=== PATIENT | male | born 1990 | race Caucasian/White ===

== ENCOUNTER → 2019-03-17 13:10 | Outpatient (CLI) | payer OTHER, SELFPAY ==
--- NOTE | 2019-03-17 13:23 | MRI_ITS ---
STUDY: MRI LUMBAR SPINE WITHOUT CONTRAST REASON FOR EXAM: Male, 29 years old. Back pain, left hip pain TECHNIQUE: Standardized fat and water weighted pulse sequences were obtained in the sagittal and axial planes. COMPARISON: None FINDINGS: T12-L1: . Normal disc height, hydration and morphology. Normal bilateral facet joints. Normal central canal and bilateral lateral recesses. Normal bilateral intervertebral neural foramina. Normal lumbar lordosis. There is no substantial scoliosis. Normal conus medullaris. There are mild multilevel Schmorl's nodes. L1-2: . Normal disc height, hydration and morphology. Normal bilateral facet joints. Normal central canal and bilateral lateral recesses. Normal bilateral intervertebral neural foramina. L2-3: Normal disc height, hydration and morphology. There is mild facet and ligamentous hypertrophy. Normal central canal and bilateral lateral recesses. Normal bilateral intervertebral neural foramina. L3-4: Normal endplates. Normal disc height, hydration and morphology. There is mild facet spondylosis and ligamentous hypertrophy. Normal central canal and bilateral lateral recesses. Normal bilateral intervertebral neural foramina. L4-5: There is mild posterior bulging annulus. There is ligamentous hypertrophy. There is Mild facet spondylosis. Mild central canal narrowing. There is no foraminal stenosis. L5-S1: There is disc space narrowing. There is increased signal within the posterior disc margin. There is small posterior protrusion with minimal inferior extrusion. This is likely subligamentous in location. There is slight effacement of thecal sac without significant central canal stenosis. There is ligamentous and facet hypertrophy. There is no foraminal stenosis. Normal visualized sacral ala. Normal visualized paraspinous soft tissue structures. MRI/Spine Lumbar (Routine) IMPRESSION: Multilevel spondylosis, at L5-S1 there is an annular tear with small posterior protrusion with minimal inferior extrusion. This is likely subligamentous in location. There is slight effacement of thecal sac without significant central canal stenosis. At L4-L5 there is mild posterior bulging annulus. There is ligamentous hypertrophy. There is Mild facet spondylosis. Mild central canal narrowing. Electronically Signed: Jimmy Weinstein, at 17:11 EDT Tel , Service support ,
== END ==
PROVIDERS: Family Provider Family Medicine; PCP Family Medicine; Referring Provider Family Medicine; Visit Provider Family Medicine
DX: M54.41 Lumbago with sciatica, right side (principal); G89.29 Other chronic pain
CPT/HCPCS: 72148

== ENCOUNTER → 2020-10-21 | Outpatient (CLI) | payer OTHER, SELFPAY ==
[2020-10-21 12:25] VITALS: BMI 24.9
== END | disposition home or self-care (01) ==
LOC: LABSPEC 16:08
PROVIDERS: PCP Family Medicine; Referring Provider Physician Assistant; Visit Provider Physician Assistant
DX: Z20.828 Contact with and (suspected) exposure to other viral communicable diseases (principal)
CPT/HCPCS: 87635; U0003

== ENCOUNTER 2023-11-03 09:02 | Emergency (ER) | payer BC, SELFPAY ==
[2023-11-03 09:04] VITALS: BP 139/75; PULSE 71; RESP 18; TEMP 36.4; O2SAT 99; BMI 24.1
--- NOTE | 2023-11-03 09:16 | ED.VIS.GI ---
HPI HPI - GI History of Present Illness Chief Complaint: Abd Pain Detail of Chief Complaint: Abdominal pain Informant: patient Abdominal Pain/Flank Pain Current Severity: 03/01 Narrative Narrative: Patient presents to the emergency department complaint of abdominal pain that started initially about 2 weeks ago after Thanksgiving. Patient states that he normally does not drink alcohol but did have some alcohol at that time. He thought maybe he was developed some gastritis as the pain was intermittent in the upper abdomen. Patient started taking a proton pump inhibitor. Symptoms seem to improve over time but then he hurt his back 4 days ago and took an Aleve and since then has had more discomfort. Food at times seems to bother his stomach. He denies any blood in the stool or black tarry stool. He said no vomiting. Denies any fever. Pain really does not seem to radiate. PFSH PFSH Medical History (Updated 11/03/23 @ 10:[address] Mili Whaley, DO) Chronic low back pain Hyperlipidemia Home Medications atorvastatin 40 mg tablet 40 mg PO QHS 05/27/17 [History Last Taken Unknown] sucralfate 1 gram tablet (Carafate) 1 g PO BID PRN abdominal discomfort #20 tabs 11/03/23 [Rx Last Taken Unknown] Allergy/AdvReac Type Severity Reaction Status Date / Time No Known Allergies Allergy Verified 11/03/23 09:04 Family History (Updated 09/06/23 @ 15:[address] Colleen Santiago MD) Mother Diabetes Father Diabetes Grandfather Colon cancer Kidney disease Diabetes Grandmother Heart disease Diabetes Surgical History H/O adenoidectomy Hx of tonsillectomy Social History (Updated 09/06/23 @ 15:[address] 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 current occupational exposures/hazards: No pets and animals: Yes (2) pets and animals: dog(s) leisure activities: exercise Smoking Status: Never smoker Electronic Cigarette Use: not used alcohol intake: current alcohol intake frequency: a few times a week Alcohol type: beer and hard liquor substance use type: does not use caffeine: Yes (1) Type: other frequency: 3-4 times per week milton/voodoo: Nondenominational seatbelt use: always do you feel safe at home: Yes ROS ROS ED Review of Systems ROS Unobtainable: other Constitutional Constitutional ED: Reports lethargy; Denies chills, fever(s), sweats or weight loss Eyes Eyes: Denies blurry vision, change in vision or diplopia ENT ENT ED: Denies rhinorrhea or sore throat Cardiovascular Cardiovascular: Reports chest pain; Denies orthopnea or racing heartbeat Respiratory/Chest Respiratory/Chest: Denies cough, dyspnea, dyspnea on exertion, orthopnea or sputum Gastrointestinal Gastrointestinal: Reports abdominal pain and nausea; Denies diarrhea or vomiting Genitourinary Genitourinary ED: Denies dysuria, hematuria or urinary frequency Musculoskeletal Musculoskeletal: Denies arthralgias, back pain, myalgias or neck pain Integumentary Denies abscess, Abrasions or rash Neurologic Neurologic: Denies headache(s) or weakness Psychiatric Psychiatric: Denies anxiety, depression or suicidal thoughts Endocrine Endocrinology: Denies polydipsia, polyphagia or polyuria Hematologic/Lymphatic Hematologic/Lymphatic: Denies easy bleeding, easy bruising or lymphadenopathy Allergic/Immunologic Allergic/Immunologic ED: Denies mouth swelling, tongue swelling or urticaria EXAM Physical Exam Const Vital Signs: 11/03/23 09:04 Temperature 97.6 F L Temperature Source Temporal Pulse Rate 71 Respiratory Rate 18 Blood Pressure 139/75 H Blood Pressure Mean 96 Pulse Ox 99 Oxygen Delivery Method Room Air Positive well nourished and well developed General Appearance ED: well developed and NAD HEENT Reports TM's clear and moist mucous membranes normocephalic and atraumatic; Negative for trauma or tenderness Tympanic Membrane ED: Yes TM's clear Eyes PERRL and EOMs intact bilaterally General Eye ED: Negative for pale conjunctiva or scleral icterus Neck no lymphadenopathy, supple and no JVD General: Negative for tenderness Chest Wall inspection of chest normal and palpation of chest normal Chest: Negative for tenderness Resp normal respiratory effort and clear to auscultation bilaterally Effort and Inspection: Negative for respiratory distress or pain with movement Auscultation: Negative for rhonchi, wheezes or diminished lung sounds Cardio regular rate, regular rhythm, S1 normal heart sound, S2 normal heart sound and no murmurs Peripheral Pulses: pulses 2+ throughout GI normal to inspection, nondistended, normoactive bowel sounds, soft to palpation and no masses; Negative for non-distended GI Narrative: Mild tenderness over the epigastric region. There is no rebound, rigidity, or apparent signs. No masses palpated. Negative Oswald sign. Back/Spine no CVA tenderness and no thoracic nor lumbar tenderness Extremity normal to inspection General Extremety ED: Negative for edema General Extremity: Negative for edema Neuro oriented x3, CN's II-XII intact bilaterally, no sensory deficits noted and gait normal Sensorium / Orientation: awake, alert, oriented to person, oriented to place and oriented to time Motor Exam: strength 5/5 throughout and strength abnormal Psych mental status grossly normal Skin no rashes or lesions noted and no wounds MDM MDM MDM Narrative Medical decision making narrative: Patient presents with epigastric abdominal pain for about 2 weeks. Intermittent at times and now more continuous. In the differential would be gastritis versus ulcer versus gallbladder disease or other acute process. Clinically he looks well and he does not have a surgical abdomen. IV line established. CBC with differential obtained showing a 5.6 with hemoglobin of 17 and platelet count of 184. Chemistries were unremarkable. LFTs were normal other than he had a slightly elevated total bilirubin of 1.2. Lipase was normal at 31. While in the department I did give him a GI cocktail which did offer him significant relief. At this point suspect likely gastritis or possibly ulcer. Will refer to GI for follow-up. He is to continue with his PPI and I will order Carafate as needed. Patient advised to return if worsening pain, fever, vomiting, black tarry stools or hematemesis, or if condition should worsen anyway. Lab Data Attestation: I reviewed the patient's lab results. Labs: Laboratory Results - last 24 hr 11/03/23 09:37 WBC 5.6 RBC 5.62 Hgb 17.0 H Hct 50.4 MCV 89.7 MCH 30.2 MCHC 33.7 RDW Std Deviation 39.4 RDW Coeff of Cris 12.0 Plt Count 184 MPV 11.2 Immature Gran % (Auto) 0.200 Neut % (Auto) 47.4 Lymph % (Auto) 41.5 H [place] % (Auto) 8.9 Eos % (Auto) 1.1 Baso % (Auto) 0.9 Absolute Neuts (auto) 2.7 Absolute Lymphs (auto) 2.34 Nucleated RBC % 0 Sodium 138 Potassium 3.9 Chloride 106 Carbon Dioxide 29.0 Anion Gap 3 L BUN 11 Creatinine 1.00 Estim Creat Clear Calc 116.40 Est GFR (MDRD) Af Amer 111 Est GFR (MDRD) Non-Af 92 BUN/Creatinine Ratio 11.0 Glucose 96 Calcium 9.6 Total Bilirubin 1.20 H AST 19 ALT 43 Alkaline Phosphatase 68 Total Protein 7.1 Albumin 4.3 Globulin 2.8 Albumin/Globulin Ratio 1.5 Lipase 31 Discharge Plan Triage Chief Complaint: Abd Pain ED Provider: Mili Whaley Dx/Rx/DC Orders Clinical Impression: Gastritis, Abdominal pain Instructions: ED Gastritis (Adult), ED Abdominal Pain Unkn Cause Male... Prescriptions: New sucralfate [Carafate] 1 gram tablet 1 g PO BID PRN (Reason: abdominal discomfort) Qty: 20 0RF No Action atorvastatin 40 MG tablet 40 mg PO QHS Primary Care Provider: Colleen Santiago Referrals: Shukri Bhagat MD [Non-Staff] - Friend,DO Gopal [Med Staff - Active Staff] - 3-5 Days Disposition Disposition: Home, Self Care Discharge Date/Time: 11/03/23 10:28
[2023-11-03 09:44] LABS: Absolute Lymphocyte Count 2.34 X10^3/uL (0.83-4.51); Absolute Neutrophil Count 2.7 X10^3/uL (2.0-7.7); Basophil# 0.05 X10^3/uL; Basophil% 0.9 % (0-1); Eosinophil# 0.06 X10^3/uL; Eosinophils% 1.1 % (0-5); Hematocrit 50.4 % (40-54); Lymphocyte # 2.34 X10^3/ul (0.83-4.51); Lymphocyte % 41.5 % (19-41); Mean Corp Hgb Conc 33.7 g/dL (32-36); Mean Corpuscular Hgb 30.2 pg (27.0-32.0); Mean Corpuscular Volume 89.7 fL (80-94); Mean Platelet Vol. 11.2 fl (6.2-12.0); Monocyte% 8.9 % (0-10); NRBC Flagged by Analyzer 0 % (0-5); Neutrophil # 2.68 X10^3/uL (2.7-7.7); Neutrophil % 47.4 % (47-70); Platelet Count 184 K/mm3 (150-450); RBC Distribution Width SD 39.4 fl (35.1-43.9); Red Blood Count 5.62 M/mm3 (4.6-6.2); White Blood Count 5.6 K/mm3 (4.4-11.0)
[2023-11-03] MEDS: Mag Hydrox/Al Hydrox/Simeth 30 ML UDC PO (09:44)
[2023-11-03 10:12] LABS: ALB/GLOB Ratio 1.5 RATIO (0.9-2.4); AST(SGOT) 19 U/L (15-37); Alanine Aminotransfer ALT/SGPT 43 U/L (16-61); Albumin, Serum 4.3 g/dL (3.2-5.0); Alkaline Phosphatase 68 U/L (45-117); Anion Gap 3 (5-15); BUN 11 mg/dL (7-18); Calcium,Total 9.6 mg/dL (8.5-10.1); Chloride 106 mmol/L (98-107); EST Glomerular Filtration Rate 92 mL/min (>60); Est Glom Filt Rate - Afr Amer 111 mL/min (>60); Globulin 2.8 g/dL (2.2-4.2); Glucose 96 mg/dL (74-106); Lipase 31 U/L (13-75); Potassium 3.9 mmol/L (3.5-5.1); Protein, Total 7.1 g/dL (6.4-8.2); Sodium Level 138 mmol/L (136-145)
== END 2023-11-03 10:28 | disposition home or self-care (01) ==
PROVIDERS: Emergency Provider Emergency Medicine; PCP Internal Medicine; Visit Provider Emergency Medicine
DX: K29.70 Gastritis, unspecified, without bleeding (principal); R10.13 Epigastric pain; E78.5 Hyperlipidemia, unspecified; M54.9 Dorsalgia, unspecified; G89.29 Other chronic pain; Z79.899 Other long term (current) drug therapy
CPT/HCPCS: 80053; 83690; 85025; 99283; A4216

== ENCOUNTER → 2024-01-19 | Outpatient (CLI) | payer BC, SELFPAY ==
[2024-01-19 11:14] LABS: Cholesterol 137 mg/dL (200); High Density Lipoprotein 35 mg/dL; Triglycerides 52 mg/dL; Very Low Density Lipoprotein 10 mg/dL (5-40)
== END | disposition home or self-care (01) ==
PROVIDERS: PCP Family Medicine; Referring Provider Family Medicine; Visit Provider Family Medicine
DX: E78.5 Hyperlipidemia, unspecified (principal)
CPT/HCPCS: 36415; 80061

== ENCOUNTER → 2024-05-19 | Outpatient (CLI) | payer BC, SELFPAY ==
--- NOTE | 2024-05-19 09:12 | US_ITS ---
INDICATION: POSTPRANDIAL PAIN EXAMINATION: US Abdomen Limited (quadrant) TECHNIQUE: Luu-scale and color Doppler imaging was performed of the right upper abdominal quadrant. COMPARISON: None. Findings: The liver is homogenous and normal in echogenicity and echotexture. There is no evidence of contour nodularity. No focal hepatic mass is identified. The main portal vein is normal in size and patent demonstrating hepatopetal flow. The gallbladder is remarkable for sludge, however is without evidence of stones, wall thickening or pericholecystic fluid. Sonographic Oswald''s tenderness is not appreciated. There is no evidence of intrahepatic biliary ductal dilatation. The CBD is nondilated measuring 4 mm at the level of the sophie hepatis. The visualized portions of the pancreas are unremarkable without evidence of focal or diffuse enlargement. Specifically, the tail is obscured by overlying bowel gas. Right kidney measures 11.1 cm in length. It is normal in echogenicity. No focal renal lesion is identified. There is no evidence of hydronephrosis. US/Abdomen Limited IMPRESSION: Gallbladder sludge. Otherwise normal right upper quadrant ultrasound. Electronically Signed: Angel Land MD at 17:22 EDT ,
== END | disposition home or self-care (01) ==
PROVIDERS: PCP Family Medicine; Referring Provider Family Medicine; Visit Provider Family Medicine
DX: R10.11 Right upper quadrant pain (principal)
CPT/HCPCS: 76705

== ENCOUNTER → 2024-06-26 | Outpatient (CLI) | payer BC, SELFPAY ==
--- NOTE | 2024-06-26 07:44 | NM_ITS ---
CLINICAL: 34-year-old male with history of right upper quadrant abdominal pain. RADIONUCLIDE HEPATOBILIARY SCINTIGRAPHY COMPARISON: Abdominal ultrasound report 05/19/2024 FINDINGS: Following the intravenous administration of 5.5 mCi of 99m Tc Mebrofenin, hepatobiliary images reveal: 1. Relatively prompt and homogeneous radiopharmaceutical concentration is noted by a normal sized liver. No parenchymal defects are identified. 2. Gallbladder activity is identified at 15 minutes post radiopharmaceutical administration. 3. Small intestinal tract is observed at 45 minutes following tracer injection. 4. Washout of the radiopharmaceutical by the hepatic parenchyma appears qualitatively normal. Cholecystokinin (0.02 ug/kg) was administered intravenously over a 30-minute period. The post CCK gallbladder ejection fraction calculated at 20 minutes following Cholecystokinin administration was noted to be 81.0 % (normal greater than 35%). During 30 minutes of post CCK imaging, there is no scintigraphic evidence of reflux of the radiotracer into the common hepatic duct or refilling of the gallbladder. There is questionable subtle scintigraphic evidence of post cholecystokinin duodenal-gastric reflux. NM/Hepatobilliary Img w/Pharm Int IMPRESSION: 1. A gallbladder ejection fraction calculated to be greater than 35% following the administration of Cholecystokinin makes the probability of functional hepatobiliary disease (gallbladder and/or sphincter of Oddi dyskinesia) and/or organic hepatobiliary disease (chronic acalculous cholecystitis and/or cystic duct syndrome) to be low. (Domenic Duvall et al, Journal of Nuclear Medicine 32:1695, 1991). B. 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 Electronically Signed: Kenneth Posada DO at 10:20 EDT ,
== END | disposition home or self-care (01) ==
LOC: NM 07:42
PROVIDERS: PCP Family Medicine; Referring Provider Family Medicine; Visit Provider Family Medicine
DX: R10.11 Right upper quadrant pain (principal)
CPT/HCPCS: 78227; A9537; J2805

== ENCOUNTER → 2025-06-22 | Outpatient (CLI) | payer BC, SELFPAY ==
[2025-06-22 11:25] LABS: AST(SGOT) 18 U/L (<=37); Alanine Aminotransfer ALT/SGPT 19 U/L (<=46); Albumin, Serum 4.6 g/dL (3.5-5.0); Alkaline Phosphatase 66 U/L (40-129); Bilirubin, Direct 0.32 mg/dL (0.00-0.30); Cholesterol 142 mg/dL (<=200); Globulin 2.3 g/dL (2.2-4.2); Low Density Lipoprotein Calc. 95 mg/dL; Triglycerides 52 mg/dL; Very Low Density Lipoprotein 10 mg/dL (5-40); cholesterol:hdl ratio screen 3.83
== END | disposition home or self-care (01) ==
LOC: LAB 08:27
PROVIDERS: PCP Family Medicine; Referring Provider Family Medicine; Visit Provider Family Medicine
DX: E78.5 Hyperlipidemia, unspecified (principal)
CPT/HCPCS: 36415; 80061; 80076

== ENCOUNTER → 2025-08-27 | Outpatient (CLI) | payer BC, SELFPAY ==
--- NOTE | 2025-08-27 08:19 | US_ITS ---
PROCEDURE: ABDOMEN LIMITED 08/27/2025 REASON FOR EXAM: RUQ PAIN, POSTPRANDIAL PAIN TECHNIQUE: Procedure Code: USABDL Modality: US Procedure: ABDOMEN LIMITED COMPARISON: Prior study dated May 19, 2024. FINDINGS: Liver: Grossly normal size and echotexture. Gallbladder: No stones, sludge, wall thickening or tenderness. Common bile duct: Normal measuring 4 mm. . Pancreas: Normal Other: Visualized portions of the right kidney are unremarkable. No right upper quadrant ascites. US/Abdomen Limited IMPRESSION: NORMAL RIGHT UPPER QUADRANT ULTRASOUND. Reading Location: [id number]
--- NOTE | 2025-08-27 08:19 | US_ITS ---
PROCEDURE: ABDOMEN LIMITED 08/27/2025 REASON FOR EXAM: RUQ PAIN, POSTPRANDIAL PAIN TECHNIQUE: Procedure Code: USABDL Modality: US Procedure: ABDOMEN LIMITED COMPARISON: Prior study dated May 19, 2024. FINDINGS: Liver: Grossly normal size and echotexture. Gallbladder: No stones, sludge, wall thickening or tenderness. Common bile duct: Normal measuring 4 mm. . Pancreas: Normal Other: Visualized portions of the right kidney are unremarkable. No right upper quadrant ascites. US/Abdomen Limited IMPRESSION: NORMAL RIGHT UPPER QUADRANT ULTRASOUND. Reading Location: [id number]
== END | disposition home or self-care (01) ==
LOC: US 08:18
PROVIDERS: PCP Family Medicine; Referring Provider Nurse Practitioner Family; Visit Provider Nurse Practitioner Family
DX: R10.11 Right upper quadrant pain (principal)
CPT/HCPCS: 76705

== ENCOUNTER 2025-09-04 13:42 | Emergency (ER) | payer BC, SELFPAY ==
[2025-09-04 13:42] VITALS: BP 126/73; PULSE 92; RESP 16; TEMP 37; O2SAT 97; BMI 23.8
--- NOTE | 2025-09-04 14:12 | CT_ITS ---
PROCEDURE: ABDOMEN/PELVIS W IV CONT ONLY 09/04/2025 REASON FOR EXAM: RIGHT UPPER QUADRANT PAIN TECHNIQUE: Procedure Code: CTABDPELIV Modality: CT Procedure: ABDOMEN/PELVIS W IV CONT ONLY Coronal and Sagittal reconstruction series were provided. One or more dose reduction techniques were used (e.g., Automated exposure control, adjustment of the mA and/or kV according to patient size, use of iterative reconstruction technique. FINDINGS: The lung bases are clear. The peripheral soft tissues unremarkable. Normal caliber abdominal aorta. No suspicious lymphadenopathy. The liver is unremarkable. The gallbladder, pancreas, spleen, and adrenals are unremarkable. Symmetric enhancement of the bilateral kidneys. No hydroureteronephrosis. The urinary bladder is unremarkable. Borderline wall thickening of the sigmoid colon which may be due to underdistention or colitis. Small hiatal hernia. CT/Abdomen/Pelvis W IV Cont ONLY IMPRESSION: Borderline thickening of the sigmoid colon which may be due to underdistention or colitis. Small hiatal hernia. Reading Location: [id number]
--- NOTE | 2025-09-04 14:13 | ED.VIS.GI ---
HPI HPI - GI History of Present Illness Chief Complaint: Abd Pain Narrative Narrative: 35-year-old male with no significant past medical history presents with right upper quadrant abdominal pain that is dull and achy that has had intermittently for the last month. He relates history that he had a workup for right upper quadrant pain last year. He did have an ultrasound which showed sludge. He has also had a HIDA scan as an outpatient which was negative. He continued to have right upper quadrant abdominal pain, and had an ultrasound performed about a week ago which did not show any stones or sludge. He had changed his diet to increase his fiber intake. He states he still eats relatively healthy, but has had decreased appetite to the point where he almost had to force down a banana and oatmeal this morning. He denies any fevers or chills, no exacerbating or alleviating factors. He states the pain is somewhat dull and achy and radiates into his chest at times. No dysuria or hematuria. No diarrhea. PFSH [facility] Medical History SULMA (generalized anxiety disorder) Hyperlipidemia Chronic low back pain Home Medications ?Medication ?Instructions ?Recorded ?Last Taken ?Type atorvastatin 40 mg tablet 40 mg PO QHS #90 tabs 12/08/23 Unknown Rx hydroxyzine HCl 25 mg tablet 25 mg PO BID PRN anxiety #60 tabs 08/15/25 Unknown Rx ondansetron 8 mg disintegrating 8 mg PO Q8H PRN nausea and 09/04/25 Unknown Rx tablet vomiting 5 days #15 tabs Allergy/AdvReac Type Severity Reaction Status Date / Time No Known Allergies Allergy Verified 09/04/25 13:42 Family History Mother Diabetes Father Diabetes Grandfather Colon cancer Kidney disease Diabetes Grandmother Heart disease Diabetes Surgical History H/O adenoidectomy Hx of tonsillectomy Social History household members: spouse and children number of children: 2 current occupational status: employed 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 Intermittent x 1 month. No prior abdominal surgeries. No fevers or chills, no nausea or vomiting. EXAM Physical Exam Narrative Exam Narrative: Afebrile. Vital signs noted. Nontoxic-appearing. Cardiovascular examination reveals a regular rate and rhythm. Lungs are clear to auscultation bilaterally. Abdomen is soft and nontender without guarding or rebound. Negative Oswald sign. Positive bowel sounds. Neurological examination nonfocal, nonlateralizing. Const Vital Signs: 09/04/25 13:42 09/04/25 15:16 Temperature 98.6 F 98.6 F Temperature Source Oral Pulse Rate 92 63 Respiratory Rate 16 16 Blood Pressure 126/73 H 109/65 Blood Pressure Mean 90 79 Pulse Ox 97 99 Oxygen Delivery Method Room Air MDM MDM MDM Narrative Medical decision making narrative: The differential diagnosis includes but not limited to biliary colic versus acute cholecystitis versus colitis/diverticulitis versus nonspecific abdominal pain. I reviewed his prior records. Baseline laboratories will be drawn including CBC, CMP, and lipase. I reviewed his prior outpatient imaging. He had an unremarkable gallbladder ultrasound recently which did not show stones or sludge, no inflammation. His HIDA scan from 2023 showed duodenal gastric reflux but an ejection fraction of the gallbladder greater than 35%. He declined any analgesics currently. I reviewed his laboratory work and he has a normal white count of 9.8, hemoglobin slightly hemoconcentrated 17.9. When compared to prior labs, it was elevated at 17. Platelet count normal at 185. CMP is grossly unremarkable except for glucose of 113 with a normal anion gap of 11, LFTs are normal with normal AST, ALT, and alk phos. Total bilirubin normal at 0.8. Lipase normal at 40 so I doubt pancreatitis. I reviewed the radiology report of the CT of the abdomen and pelvis with IV contrast. Gallbladder and right upper quadrant structures including liver are normal. They did comment on slight thickening of the sigmoid colon which could be secondary to colitis versus underdistention. I favor the latter as he does not have an elevated white count or fever and his discomfort is in the right upper quadrant. At this point in time, I feel he can be discharged to follow-up with his primary care provider. I had reviewed his outpatient workup as well. I do not feel antibiotics are indicated. I feel he can be discharged to follow-up. He states he had slight nausea which resolved after given contrast intravenously. Given his previous nausea, I did write him a prescription for Zofran ODT's. Return instructions to the emergency department were reviewed. Disposition is discharged home in stable condition. History & Record Review Discussion w/independent historian: Patient Additional record(s) reviewed:: Prior outpatient record and Prior labs Lab Data Attestation: I reviewed the patient's lab results. Labs: Laboratory Results - last 24 hr 09/04/25 13:52 WBC 9.8 RBC 5.79 Hgb 17.9 H Hct 52.4 MCV 90.5 MCH 30.9 MCHC 34.2 RDW Std Deviation 39.5 RDW Coeff of Cris 11.9 Plt Count 185 MPV 12.3 H Immature Gran % (Auto) 0.200 Neut % (Auto) 68.7 Lymph % (Auto) 24.6 [place] % (Auto) 5.7 Eos % (Auto) 0.4 Baso % (Auto) 0.4 Absolute Neuts (auto) 6.8 Absolute Lymphs (auto) 2.42 Nucleated RBC % 0.3 Sodium 139 Potassium 4.1 Chloride 102 Carbon Dioxide 26.0 Anion Gap 11 BUN 11 Creatinine 0.93 Estim Creat Clear Calc 122.84 Est GFR (MDRD) Non-Af 111 BUN/Creatinine Ratio 11.5 Glucose 113 H Calcium 9.8 Total Bilirubin 0.80 AST 20 ALT 19 Alkaline Phosphatase 70 Total Protein 7.2 Albumin 4.8 Globulin 2.4 Albumin/Globulin Ratio 2.0 Lipase 40 Radiography Diagnostic Testing: Clinical Impression(s) from Imaging Studies Abdomen/Pelvis CT 09/04/25 14:12 IMPRESSION: Borderline thickening of the sigmoid colon which may be due to underdistention or colitis. Small hiatal hernia. Reading Location: [id number] Discharge Plan Triage Chief Complaint: Abd Pain ED Provider: Cody Lee Dx/Rx/DC Orders Clinical Impression: Right upper quadrant abdominal pain, Nausea, Hiatal hernia Instructions: ED Abdominal Pain Unkn Cause Male..., ED Hiatal Hernia Prescriptions: New ondansetron 8 mg tablet,disintegrating 8 mg PO Q8H PRN (Reason: nausea and vomiting) 5 Days Qty: 15 0RF No Action hydroxyzine HCl 25 mg tablet 25 mg PO BID PRN (Reason: anxiety) Qty: 60 1RF atorvastatin 40 mg tablet 40 mg PO QHS Qty: 90 1RF Primary Care Provider: Socorro Herrera Referrals: Socorro Herrera MD [Primary Care Provider, Family Practice] - 3-5 Days if not improving Activity Restrictions/Additional Instructions: Follow-up with your primary care provider in the next 3 to 5 days. Return with increased pain, fever, new or worsening symptoms. Print Language: Yi Disposition Disposition: Home, Self Care Discharge Date/Time: 09/04/25 15:17
[2025-09-04 14:21] LABS: Hematocrit 52.4 % (40-54); Hemoglobin 17.9 g/dL (13.0-16.5); Immature Granulocytes Count 0.020 X10^3/uL (0.0-0.0); Mean Corp Hgb Conc 34.2 g/dL (32-36); Mean Corpuscular Volume 90.5 fL (80-94); Mean Platelet Vol. 12.3 fl (6.2-12.0); NRBC Flagged by Analyzer 0.3 % (0-5); Platelet Count 185 K/mm3 (150-450); RBC Distribution Width CV 11.9 % (11.6-14.6); RBC Distribution Width SD 39.5 fl (35.1-43.9); Red Blood Count 5.79 M/mm3 (4.6-6.2); White Blood Count 9.8 K/mm3 (4.4-11.0)
[2025-09-04] MEDS: 0.9% Normal Saline (1000mL) 1,000 ML 999 ML IV (14:35)
[2025-09-04 14:53] LABS: AST(SGOT) 20 U/L (<=37); Alanine Aminotransfer ALT/SGPT 19 U/L (<=46); Albumin, Serum 4.8 g/dL (3.5-5.0); Alkaline Phosphatase 70 U/L (40-129); Anion Gap 11 (5-15); BUN 11 mg/dL (4-19); BUN/Creat Ratio 11.5 RATIO (10-20); Calcium,Total 9.8 mg/dL (7.6-11.0); Carbon Dioxide 26.0 mmol/L (21.0-32.0); Chloride 102 mmol/L (98-108); Estimated Creatinine Clearance 122.84 ml/min (50-250); Globulin 2.4 g/dL (2.2-4.2); Glucose 113 mg/dL (70-99); Lipase 40 U/L (13-75); Potassium 4.1 mmol/L (3.3-5.1)
[2025-09-04 15:16] VITALS: BP 109/65; PULSE 63; RESP 16; TEMP 37; O2SAT 99
--- NOTE | 2025-09-04 15:16 | ED.RN ---
500 ml of NS infused. pt states he has been able to take in fluids okay.
== END 2025-09-04 15:17 | disposition home or self-care (01) ==
PROVIDERS: Emergency Provider Emergency Medicine; PCP Family Medicine; Visit Provider Emergency Medicine
DX: R10.11 Right upper quadrant pain (principal); R11.0 Nausea; K44.9 Diaphragmatic hernia without obstruction or gangrene; E78.5 Hyperlipidemia, unspecified; K21.9 Gastro-esophageal reflux disease without esophagitis; F41.1 Generalized anxiety disorder; Z79.899 Other long term (current) drug therapy
CPT/HCPCS: 74177; 80053; 83690; 85025; 96360; 99283; Q9967; A4216